=== PATIENT | female | born 1990 | race Caucasian/White ===

== ENCOUNTER 2017-07-30 22:08 | Emergency (ER) | payer OTHER ==
[2017-07-30 22:21] VITALS: RESP 18; TEMP 99.1
--- NOTE | 2017-07-30 22:26 | EDPHY ---
H & P Stated Complaint: MIGRAINE HEADACHE FOR PAST 4 DAYS , NAUSEA PHOTOPHOBIA Time Seen by Provider: 07/30/17 22:25 HPI/ROS: CHIEF COMPLAINT: "Migraine headache" x4 days HISTORY OF PRESENT ILLNESS: 27-year-old female history of migraine headaches since age 4 complaining of her usual migraine which started 4 days ago. Not thunderclap. Started gradually became progressively worse over several hours, localized primarily to the right side associated photophobia, audio phobia, nausea. No vomiting. She went to [facility] today was given IM injection of Toradol with no relief of symptoms. Prior history of Imitrex use with no success. This feels like her usual headache. Not worst headache of life. No fevers or chills. No recent illness. No head trauma. No neck pain or trauma. No neck manipulation. 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 Nonsmoker no drug use PHYSICAL EXAM (Prior to examination, patient consented to physical exam, hands were washed and my usual and customary physical exam procedures followed) 1) GENERAL: Well-developed, well-nourished, alert and oriented. Appears uncomfortable sitting in a darkened room with her eyes covered 2) HEAD: Normocephalic, atraumatic 3) HEENT: Pupils equal, round, reactive to light bilaterally. Sclera anicteric. 4) NECK: Full range of motion, no meningeal signs. 5) LUNGS: Clear auscultation bilaterally, no wheezes, no rhonchi, no retractions. 6) HEART: Regular rate and rhythm, no murmur, no heave, no gallop. 7) ABDOMEN: No guarding, no rebound, no focal tenderness, negative McBurney's, negative Martinez's, negative Rovsing's, negative peritoneal sign, 8) MUSCULOSKELETAL: Moving all extremities, no focal areas of tenderness, no obvious trauma. No peripheral edema or discoloration. 9) BACK: No CVA tenderness, no midline vertebral tenderness, no fluctuance, no step-off, no obvious trauma, no visual or palpable abnormality. 10) SKIN: No rash, no petechiae. 11) Psychiatric: Patient is oriented X 3, there is no agitation. 12) NEURO: Awake, alert, and oriented to person, place and time. Answers questions appropriately. There were no obvious focal neurologic abnormalities. No cerebellar dysfunction. Normal steady gait. Upper and lower extremities bilaterally with strength 5 / 5, reflexes 2+. DIFFERENTIAL DIAGNOSIS: In no particular order, including but not limited to subarachnoid hemorrhage, migraine headache, tension headache and infectious causes such as meningitis, pharyngitis and sinusitis. The patient understands that this diagnosis is provisional and can never be 100% accurate. Usual and customary warnings were given concerning the clinical impression and all the patient's questions were answered. The patient was instructed to return to the emergency department should her symptoms worsen or return, or develop any new symptoms, otherwise to followup as directed in discharge instructions. This is a partial list of diagnoses considered. These considerations are based on history, physical exam, past history and reassessment. - Personal History LMP (Females 10-55): Extended Cycle BCP/Inj Current Tetanus/Diphtheria Vaccine: Yes Current Tetanus Diphtheria and Acellular Pertussis (TDAP): Yes Tetanus Vaccine Date: 2008 - Medical/Surgical History Hx Asthma: No Hx Chronic Respiratory Disease: No Hx Diabetes: No Hx Cardiac Disease: Yes Hx Renal Disease: No Hx Cirrhosis: No Hx Alcoholism: No Hx HIV/AIDS: No Hx Splenectomy or Spleen Trauma: No Other PMH: type II heart block (resolved), polycystic ovarian disease, lyme disease, anemia, MIGRAINES, endometriosis - Social History Smoking Status: Never smoked Constitutional: Initial Vital Signs Temperature (C) 37.3 C 07/30/17 22:18 Heart Rate 71 07/30/17 22:18 Respiratory Rate 18 07/30/17 22:18 Blood Pressure 137/90 H 07/30/17 22:18 O2 Sat (%) 99 07/30/17 22:18 O2 Delivery Mode Room Air Allergies/Adverse Reactions: amoxicillin Allergy (Verified 07/30/17 22:21) Penicillins Allergy (Verified 07/30/17 22:21) Home Medications: Medication Instructions Recorded Norethindrone AC-Eth Estradiol 1 each PO 07/30/17 [Khadijah 1.5 mg-30 Mcg Tablet] buPROPion XL [Wellbutrin Xl] 300 mg PO DAILY 07/30/17 Medical Decision Making ED Course/Re-evaluation: 11:30 p.m.: Patient was re-evaluated with serial examinations. At this time she was re-evaluated by myself is sleeping, states that her pain is controlled she would like to be discharged home. Care of patient under supervision of secondary supervising physician Dr Subramanian . I think that subarachnoid hemorrhage , intracranial mass, malignancy, less than likely in this patient at this time. I do not think that the benefits of CT imaging, lumbar puncture, outweigh the risks in this patient. Patient has been given usual and customary headache precautions and instructions. She feels comfortable being discharged home. She does not have established relationship with a neurologist and I provided that follow-up information referral. - Data Points Medications Given: Discontinued Medications Dexamethasone (Decadron Injection) 8 mg IVP EDNOW ONE Stop: 07/30/17 22:40 Last Admin: 07/30/17 23:11 Dose: 8 mg Haloperidol Lactate (Haldol Injection) 2.5 mg IVP EDNOW ONE Stop: 07/30/17 22:40 Last Admin: 07/30/17 23:14 Dose: 2.5 mg Metoclopramide HCl (Reglan Injection) 10 mg IVP EDNOW ONE Stop: 07/30/17 22:40 Last Admin: 07/30/17 23:16 Dose: 10 mg Departure - Departure Disposition: Home, Routine, Self-Care Clinical Impression: Headache Qualifiers: Headache type: unspecified Headache chronicity pattern: acute headache Intractability: not intractable Qualified Code(s): R51 - Headache Condition: Good Instructions: Migraine Headache (ED) Additional Instructions: RETURN TO THE ED IMMEDIATELY IF YOUR HEADACHE WORSENS, IF YOU DEVELOP A FEVER, NECK PAIN OR NECK STIFFNESS, OR IF YOU BECOME CONFUSED OR ABNORMALLY DROWSY. Referrals: Layton Day MD [Medical Doctor] - 2-3 days, call for appt. (Dr Day is a neurologist)
[2017-07-30] MEDS ORDERED: DEXAMETHASONE 4 MG/ML VIAL IVP ONE (22:39)
[2017-07-30] MEDS ORDERED: METOCLOPRAMIDE 10 MG/2 ML VIAL IVP ONE (22:39)
[2017-07-30] MEDS ORDERED: HALOPERIDOL LACT 5 MG/ML INJ IVP ONE (22:39)
[2017-07-30 23:44] VITALS: BP 123/82; PULSE 72; O2SAT 97
== END 2017-07-30 23:49 | disposition home or self-care (01) ==
DX: R51 Headache (principal)
CPT/HCPCS: 96374; J1100; J2765